=== PATIENT | female | born 1985 | race Caucasian/White ===

== ENCOUNTER → 2016-06-07 | Outpatient (CLI) | payer OTHER | END | disposition home or self-care (01) | LOC: YCFC.O 11:34 | PROVIDERS: ATTEND Nurse Practitioner Family | DX: I10 Essential (primary) hypertension (principal); Z13.220 Encounter for screening for lipoid disorders; R79.89 Other specified abnormal findings of blood chemistry ==

== ENCOUNTER → 2016-09-13 | Outpatient (CLI) | payer OTHER | END | disposition home or self-care (01) | LOC: YCFC.O 14:23 | PROVIDERS: ATTEND Nurse Practitioner Family | DX: N91.2 Amenorrhea, unspecified (principal); I10 Essential (primary) hypertension; E06.3 Autoimmune thyroiditis ==

== ENCOUNTER → 2016-09-27 | Outpatient (CLI) | payer OTHER | END | disposition home or self-care (01) | LOC: LAB.O 11:19 | PROVIDERS: ATTEND Obstetrics & Gynecology | DX: Z01.419 Encounter for gynecological examination (general) (routine) without abnormal findings (principal) ==

== ENCOUNTER → 2016-11-14 | Outpatient (CLI) | payer OTHER ==
--- NOTE | 2016-11-15 16:49 | US ---
EXAM DESCRIPTION: Gall Bladder CLINICAL HISTORY: 30 years Female RUQ PN COMPARISON: None. TECHNIQUE: Transabdominal grayscale imaging were performed to evaluate the right upper quadrant. FINDINGS: The visualized segments of the pancreas appear unremarkable. Liver is normal in size measuring 16 cm without focal lesion noted. No evidence of biliary ductal dilatation. Cholelithiasis. No evidence of gallbladder wall thickening or surrounding fluid. Common duct measures 4 mm. IMPRESSION: Cholelithiasis without evidence of acute cholecystitis Electronically signed by: Katheryn Woodruff 11/15/2016 4:47 PM CDT
== END ==
LOC: US 08:30
PROVIDERS: ATTEND Nurse Practitioner Family
DX: K80.20 Calculus of gallbladder without cholecystitis without obstruction (principal)

== ENCOUNTER 2016-12-18 09:35 | Emergency (ER) | payer OTHER ==
[2016-12-18 09:45] VITALS: TEMP 97.9
--- NOTE | 2016-12-18 09:51 | ED.PDOC ---
History of Present Illness - General Chief Complaint: Headache Stated Complaint: migraine Time Seen by Provider: 12/18/16 09:50 Source: patient, Vital Signs reviewed Exam Limitations: no limitations - History of Present Illness Initial Comments: Idalia Das 31 y/o female stated that the last 3 days had been having throbbing frontal headache with pressure back of head and light/sound aggravates the headache had 2-3 episodes of vomiting yesterday but stopped .Stated had migraine headache since 17 y/o but got less and she had it now occasionally.No fever,blurry vision,weakness. Improving Factors: nothing Worsening Factors: other - see hpi Associated Symptoms: nausea/vomiting Allergies/Adverse Reactions: Allergies Lisinopril Adverse Reaction (Verified 12/10/14 23:18) Home Medications: Ambulatory Orders Escitalopram [Lexapro] 10 mg PO DAILY 12/18/16 Losartan Potassium 50 mg PO DAILY 12/18/16 Prochlorperazine Tab [Compazine Tab] 10 mg PO TID PRN #14 tab 12/18/16 Sumatriptan Succinate [Imitrex] 50 mg PO ONCE PRN #7 tab 12/18/16 Thyroid [[place] Thyroid] 60 mg PO DAILY 12/18/16 medroxyPROGESTERone TAB [Provera] 10 mg PO .[id number] 12/18/16 Review of Systems - Review of Systems Constitutional: States: no symptoms reported EENTM: States: no symptoms reported Respiratory: States: no symptoms reported Cardiology: States: no symptoms reported Gastrointestinal/Abdominal: States: see HPI Neurological: States: see HPI Past Medical History (General) - Patient Medical History Hx Seizures: No Hx Stroke: No Hx Dementia: No Hx Asthma: No Hx of COPD: No Hx Cardiac Disorders: Yes Hx Congestive Heart Failure: No Hx Pacemaker: No Hx Hypertension: Yes Hx Thyroid Disease: No Hx Diabetes: No Hx Gastroesophageal Reflux: No Hx Renal Disease: No Hx Cancer: No Hx of HIV: No Hx Hepatitis C: No Hx MRSA: No Surgical History: no surgical history - Vaccination History Hx Tetanus, Diphtheria Vaccination: Yes Hx Influenza Vaccination: Yes Hx Pneumococcal Vaccination: No - Social History Hx Tobacco Use: No Hx Chewing Tobacco Use: No Hx Alcohol Use: No Hx Substance Use: No Hx Substance Use Treatment: No Hx Depression: No Hx Physical Abuse: No Hx Emotional Abuse: No Hx Suspected Abuse: No - Female History Patient is a Female of Child Bearing Age (10 -59 yrs old): Yes Hx Last Menstrual Period: 12/05/16 Patient : No Family Medical History - Family History Mother Family History: No Known Hx Family Hypertension: Yes Father Hx Family Hypertension: Yes Hx Cardiac Disease: Yes - [place] Physical Exam - Physical Exam General Appearance: Alert, No apparent distress, Other - speech fluent Eye Exam: bilateral normal Ears, Nose, Throat: hearing grossly normal, normal ENT inspection, normal pharynx Neck: non-tender, full range of motion, supple Respiratory: lungs clear, normal breath sounds Cardiovascular/Chest: regular rate, rhythm, no murmur Peripheral Pulses: radial,right: 2+, radial,left: 2+ Gastrointestinal/Abdominal: normal bowel sounds, non tender, soft Back Exam: normal inspection, no CVA tenderness, no vertebral tenderness Extremity: no pedal edema, no calf tenderness Neurologic: no motor/sensory deficits, alert, normal mood/affect, oriented x 3 Skin Exam: normal color, warm/dry Progress - Progress Progress: 12/18/16 10:10 Vital Signs - 8 hr 12/18/16 09:42 Temperature 97.9 F Pulse Rate [ 106 H Left Brachial] Respiratory 20 Rate Blood Pressure 110/78 [Left Arm] O2 Sat by Pulse 96 Oximetry - Results/Orders Results/Orders: Laboratory Tests 12/18/16 10:30 WBC 7.8 RBC 5.10 Hgb 14.6 Hct 42.9 MCV 84.2 MCH 28.6 MCHC 33.9 RDW 14.4 Plt Count 288 MPV 7.9 Absolute Neuts (auto) 4.60 Absolute Lymphs (auto) 2.60 Absolute Monos (auto) 0.50 Absolute Eos (auto) 0.00 Absolute Basos (auto) 0.10 Neutrophils % 58.8 Lymphocytes % 33.0 Monocytes % 6.8 Eosinophils % 0.6 L Basophils % 0.8 Departure - Departure Clinical Impression: Headache Qualifiers: Headache type: unspecified Headache chronicity pattern: unspecified pattern Intractability: not intractable Qualified Code(s): R51 - Headache Time of Disposition: 11:00 Disposition: Discharge to Home or Self Care Condition: Good Departure Forms: ED Discharge - Pt. Copy, Patient Portal Self Enrollment Instructions: Migraine Headaches (Alternative Therapy), Migraine -- Adult, DI for Migraine, DI for Headache Referrals: Brigette Chaves, ELYSE [Nurse Practitioner] - 1-2 Weeks Prescriptions: Prochlorperazine Tab [Compazine Tab] 10 mg PO TID PRN #14 tab PRN Reason: Nausea Sumatriptan Succinate [Imitrex] 50 mg PO ONCE PRN #7 tab PRN Reason: Headache/Migraine Pain Home Medications: Ambulatory Orders Escitalopram [Lexapro] 10 mg PO DAILY 12/18/16 Losartan Potassium 50 mg PO DAILY 12/18/16 Prochlorperazine Tab [Compazine Tab] 10 mg PO TID PRN #14 tab 12/18/16 Sumatriptan Succinate [Imitrex] 50 mg PO ONCE PRN #7 tab 12/18/16 Thyroid [[place] Thyroid] 60 mg PO DAILY 12/18/16 medroxyPROGESTERone TAB [Provera] 10 mg PO .[id number] 12/18/16 Additional Instructions: Follow up with primary md 12/19/2016 call for appointment as needed
[2016-12-18] MEDS ORDERED: PROMETHAZINE HCL INJ 25 MG/ML VIAL IM ONE (09:59)
[2016-12-18] MEDS ORDERED: LACTATED RINGERS 1,000 ML IVS ONE (09:59)
[2016-12-18] MEDS ORDERED: DEXAMETHASONE INJ 4 MG/ML VIAL IV ONE (09:59)
[2016-12-18] MEDS ORDERED: BUTORPHANOL TARTRATE 2 MG/ML VIAL IV ONE (09:59)
[2016-12-18 10:41] VITALS: O2SAT 95
[2016-12-18 11:17] VITALS: BP 105/70
== END 2016-12-18 11:17 | disposition home or self-care (01) ==
LOC: ER 09:35
DX: R51 Headache (principal); I10 Essential (primary) hypertension; Z88.8 Allergy status to other drugs, medicaments and biological substances; Z79.899 Other long term (current) drug therapy
CPT/HCPCS: 36415; 85025; J0595; J1100; J2550; J7120

== ENCOUNTER 2017-01-10 05:45 | Day surgery (SDC) | payer OTHER ==
[2017-01-10] MEDS ORDERED: raNITIdine HCL INJ 25 MG/ML VIAL ONE (07:00)
[2017-01-10] MEDS ORDERED: METOCLOPRAMIDE HCL INJ 10 MG/2 ML VIAL ONE (07:00)
[2017-01-10] MEDS ORDERED: SODIUM CHLORIDE 0.9% 50 ML VIAL ONE ×2 (07:00→07:17)
[2017-01-10] MEDS ORDERED: KETOROLAC TROMETHAMINE INJ 30 MG/ML VIAL ONE (07:00)
[2017-01-10] MEDS ORDERED: GLYCOPYRROLATE 0.2 MG/ML VIAL ONE (07:00)
[2017-01-10] MEDS ORDERED: ePHEDrine SULF 50 MG/ML ONE (07:00)
[2017-01-10] MEDS ORDERED: LIDOCAINE 1% 10 ML VIAL INJ ONE (07:00)
[2017-01-10] MEDS ORDERED: PROPOFOL 200 MG/20 ML VIAL IV ONE (07:00)
[2017-01-10] MEDS ORDERED: DEXAMETHASONE INJ 10 MG/ML VIAL ONE (07:00)
[2017-01-10] MEDS ORDERED: PHENYLEPHRINE INJ 1ML 10 MG/ML VIAL ONE (07:00)
[2017-01-10] MEDS ORDERED: LACTATED RINGERS 1,000 ML ONE (07:04)
[2017-01-10] MEDS ORDERED: ceFAZolin SODIUM 1 GM VIAL ONE (07:05)
[2017-01-10] MEDS ORDERED: SODIUM CHL 0.9% 100ML MINI-BAG 100 ML IVPB ONE (07:05)
[2017-01-10] MEDS ORDERED: BUPIVACAINE 0.5% W/EPI 30 ML VIAL INJ ONE (07:16)
[2017-01-10] MEDS ORDERED: HEPARIN SODIUM (PORCINE) 10,000 UNITS/ML VIAL ONE (07:16)
[2017-01-10] MEDS ORDERED: MIDAZOLAM INJ 2 MG/2 ML VIAL ONE (07:52)
[2017-01-10] MEDS ORDERED: ROCURONIUM BROMIDE 10 MG/ML VIAL ONE ×2 (07:53→09:20)
[2017-01-10] MEDS ORDERED: fentaNYL CITRATE INJ 50 MCG/ML AMP ONE ×2 (07:53→07:54)
[2017-01-10] MEDS ORDERED: ELECTROLYTE-A 1,000 ML IVS ONE (09:41)
[2017-01-10] MEDS ORDERED: SUGAMMADEX SODIUM 200 MG/2 ML VIAL IV ONE (09:48)
[2017-01-10] MEDS ORDERED: HYDROmorphone HCL INJ 2 MG/ML VIAL ONE (09:52)
--- NOTE | 2017-01-10 10:21 | OP ---
DATE OF PROCEDURE: 01/10/17 PREOPERATIVE DIAGNOSIS: 1. Symptomatic cholelithiasis. POSTOPERATIVE DIAGNOSIS: 1. Symptomatic cholelithiasis. 2. Chronic cholecystitis. PROCEDURE: 1. Laparoscopic cholecystectomy with intraoperative cholangiography using fluoroscopy. SURGEON: Price Wheeler MD. [employer] SUPERVISOR: None. ANESTHESIA: Local infiltration of 0.25% Marcaine with epinephrine and general endotracheal anesthesia. INDICATION: The patient is a 31-year-old female with a history of right upper quadrant abdominal pain, fatty food intolerance with the pain radiating to the flank. She also has bloating, belching and diarrhea. She has sonographically diagnosed cholelithiasis. The patient was brought to the Surgical Suite today for cholecystectomy after the risks, benefits and alternatives to the procedure were discussed and accepted. FINDINGS: The gallbladder was large, somewhat distended. There were multiple adhesions to the anterior abdominal wall from the omentum. There was a small amount of wall thickening. There were stones. Intraoperative cholangiography revealed normal sized duct with free flow into the duodenum with no filling defects or strictures noted. DESCRIPTION OF PROCEDURE: After adequate general endotracheal anesthesia was obtained, the patient was prepped and draped in the usual sterile manner. The supraumbilical area was infiltrated with local anesthesia after a surgical time- out. The skin was incised with a knife. Dissection was carried down through the skin and subcutaneous tissue to the midline fascia using blunt dissection. Traction sutures were placed on either side of the midline. A small incision was made in the midline fascia and the peritoneum was opened bluntly. Mickey trocar was introduced under direct vision into the abdominal cavity and fixed in place with the 20 mL balloon. CO2 was then insufflated until a pressure of 12 mmHg was reached and the abdomen was tympanitic in all four quadrants. When this was done, the laparoscope was introduced. The abdomen was inspected with the previously noted findings. The patient was then placed in reverse Trendelenburg position, turned to the left side. The upper abdominal ports were placed under direct vision. The gallbladder was grasped, retracted anteriorly and the adhesions to the gallbladder were taken down using blunt dissection and electrocautery. It was then retracted also laterally and superiorly. The neck of the gallbladder was retracted laterally. The triangle of Calot was then explored using blunt dissection. The cystic duct was identified and clipped proximally. The cystic artery was dissected free and clipped once distally and twice proximally. A small incision was made in the cystic duct. The cholangiogram catheter was introduced through a separate stab wound in the right upper quadrant, introduced into the cystic duct and clipped in place. Cholangiograms were then taken using fluoroscopy which revealed free flow into the duodenum with no filling defects or strictures noted. When this was done, the cystic duct catheter was removed. The cystic duct was hemoclipped three times distally and divided between the hemoclips. The cystic artery was divided. The gallbladder was then dissected free from the gallbladder bed of the liver. The gallbladder was then removed from the supraumbilical port site in the usual manner under direct vision without difficulty. When this was done, the subhepatic space and subphrenic space were irrigated copiously with saline. Hemostasis was noted to be good. The paul hepatis was inspected and no bleeding or bile leak was identified. The upper abdominal ports were removed under direct vision and good hemostasis was noted. At this point, the CO2, the laparoscope and the supraumbilical port were removed. The supraumbilical port site fascia was approximated with a single [id number] suture of 0 Vicryl. Subcutaneous tissue was irrigated with saline. Skin edges were approximated with 4-0 Vicryl subcuticular sutures, benzoin and Steri-Strips. Sterile dressings were applied. The patient was awakened and taken to the Recovery Room in good and stable condition. Estimated blood loss was less than 25 mL. All sponge, needle and instrument counts were correct. #[id number] [facility]
[2017-01-10] MEDS ORDERED: ONDANSETRON INJ 4 MG/2 ML VIAL ONE (10:44)
[2017-01-10] MEDS ORDERED: PROMETHAZINE HCL INJ 25 MG/ML VIAL ONE (11:41)
[2017-01-10] MEDS ORDERED: SODIUM CHLORIDE 0.9% 100ML 100 ML IVPB ONE (11:41)
[2017-01-10 12:13] VITALS: BP 118/68; TEMP 97; O2SAT 100
[2017-01-10] MEDS ORDERED: HYDROcodone 5MG/APAP 325MG 1 EA TAB ONE (12:14)
== END 2017-01-10 12:30 | disposition home or self-care (01) ==
LOC: AMB 05:45
PROVIDERS: ATTEND Surgery
DX: K80.10 Calculus of gallbladder with chronic cholecystitis without obstruction (principal); K82.8 Other specified diseases of gallbladder; I10 Essential (primary) hypertension; E03.9 Hypothyroidism, unspecified; E06.3 Autoimmune thyroiditis; E55.9 Vitamin D deficiency, unspecified; M26.609 Unspecified temporomandibular joint disorder, unspecified side; F32.9 Major depressive disorder, single episode, unspecified; R51 Headache; Z88.8 Allergy status to other drugs, medicaments and biological substances; Z79.899 Other long term (current) drug therapy
CPT/HCPCS: 00790; 36415; 47563; 76000; 80053; 81001; 84703; 85025; A4216; J0690; J1100; J1170; J1644; J1885; J2250; J2405; J2550; J2765; J2780; J3010; J3490; J7050; J7120